=== PATIENT | female | born 2000 | race Two or more races ===

== ENCOUNTER 2024-10-11 14:33 | Emergency (ER) | payer MEDICAID, SELFPAY ==
[2024-10-11 14:46] VITALS: BP 125/89; PULSE 82; RESP 16; TEMP 36.7; O2SAT 99; BMI 26.4
--- NOTE | 2024-10-11 14:55 | EKG_ITS ---
[facility] Test Date: 2024-10-11 Pat Name: JUAN REYES Department: Room: - Gender: Female Milker Machine: : 2000 Requested By: Tristan Delgado Order Number: [id number] Reading MD: Tristan Delgado Measurements Intervals Jemison Rate: 68 P: 42 NJ: 149 QRS: 56 QRSD: 80 T: 48 QT: 366 QTc: 390 Interpretive Statements SINUS RHYTHM WITH SINUS ARRHYTHMIA No previous ECG available for comparison /store/S0/[id number].pdf
--- NOTE | 2024-10-11 14:55 | XR_ITS ---
Examination: CT brain head without contrast. 2-D sagittal coronal reconstructions Date and time of exam:October 11, 2024, 1509 hrs. Indications: Headache dizziness beginning one week ago CTDI: vol (mGy):44.9 DLP: (mGycm):790 Technique: Multiple CT axial sections of the brain have been obtained, 5 mm slice thickness. Contrast has not been administered. 2-D sagittal, coronal reconstructions have been obtained Low dose protocols were performed. One or more of the following dose reduction techniques were used; automated exposure control, adjustment of the mA and/or KV according to patient size, use of iterative reconstruction technique. Findings: No significant ventricular enlargement. Intra-axial or extra-axial hemorrhage density is not seen. No mass effect or midline shift Basal cisterns are not remarkable. Fourth ventricle is midline. Cranial vault intact. Impression: Negative for acute hemorrhage, mass effect or midline shift Advise clinical correlation and follow-up accordingly
--- NOTE | 2024-10-11 14:55 | PD.EDRME ---
Rapid Medical Screening Exam RME Arrival date/time: 10/11/24 14:33 This is a case of 24-year-old female who came into the emergency room due to dizziness and headache for 1 week with nausea vomiting worsening of the symptoms this patient decided to start consult here in the emergency ROOM Chief Complaint: Dizziness Time Seen by Provider: 10/11/24 14:54 Vital signs: Vital Signs Temperature 98.0 F 10/11/24 14:46 Pulse Rate 82 10/11/24 14:46 Respiratory Rate 16 10/11/24 14:46 Blood Pressure 125/89 H 10/11/24 14:46 Pulse Oximetry (%) 99 10/11/24 14:46 Oxygen Delivery Method Room Air 10/11/24 14:46
[2024-10-11 15:40] LABS: Collection Type, Urine Clean Catch
[2024-10-11 15:51] LABS: Basophils % (Auto) 1 % (0-2.5); Eosinophils # (Auto) 0.1 Thou/mm3 (0.0-0.5); Eosinophils % (Auto) 1 % (0-10); Hematocrit 37.1 % (36.0-46.0); Hemoglobin 13.3 g/dL (12.0-16.0); Immature Granulocytes % (Auto) 0 % (0-0); Immature Granulocytes Auto 0.02 Thou/mm3 (0.00-0.00); Lymphocytes # (Auto) 2.6 Thou/mm3 (1.0-4.8); Lymphocytes % (Auto) 32 % (10-50); Mean Corpuscular HGB Conc 35.8 g/dl (31.0-37.0); Mean Corpuscular Hemoglobin 31.8 pg (25.0-35.0); Mean Corpuscular Volume 89 fL (80-100); Monocytes # (Auto) 0.4 Thou/mm3 (0.0-0.8); Monocytes % (Auto) 5 % (0-12); Neutrophils % (Auto) 61 % (37-80); Nucleated Red Blood Cell % 0 /100 WBC (0); Platelet Count 222 Thou/mm3 (140-440); RDW Standard Deviation 39.4 fL (36.4-46.3); Red Blood Count 4.18 Miln/mm3 (4.00-5.20); White Blood Count 8.2 Thou/mm3 (3.6-11.0)
[2024-10-11 16:05] LABS: Alanine Aminotransferase 13 U/L (10-49); Albumin, Serum 4.4 gm/dL (3.5-5.0); Albumin/Globulin Ratio 2.1 (1.2-2.2); Alkaline Phosphatase 44 U/L (46-116); Anion Gap 6 (7-16); Aspartate Amino Transferase 13 U/L (0-34); BUN/Creatinine Ratio 7 Ratio (12-20); Bilirubin,Total 0.6 mg/dL (0.3-1.2); Blood Urea Nitrogen 5 mg/dL (9-23); Calcium 9.1 mg/dL (8.3-10.6); Calcium (Corrected) 9.1 mg/dL (8.5-10.1); Carbon Dioxide 25.9 mMol/L (20.0-31.0); Chloride 108 mMol/L (98-107); Creatinine (Component) 0.7 mg/dL (0.6-1.3); Estimated Creatinine Clearance 93.7 mL/min (>60); Globulin 2.1 gm/dL (2.3-3.5); Glucose 115 mg/dL (74-106); Osmolality,Calculated 277 (275-295); Potassium 3.7 mMol/L (3.4-5.1); Sodium 140 mMol/L (136-145); Total Protein 6.5 gm/dL (5.7-8.2); Troponin I < 0.002 ng/mL (0.0-0.045); eGFR > 60 See Note
[2024-10-11 16:06] LABS: Bacteria,Urine Rare; Bilirubin,Urine Negative (Negative); Blood,Urine Negative (Negative); Color,Urine Lt-Yellow (Lt Yel-Yel); Glucose, Urine Negative (Negative); Ketones,Urine Negative (Negative); Leukocyte Esterase,Urine Negative (Negative); Nitrite,Urine Negative (Negative); PH,Urine 7.5 (5.0-7.0); Protein,Urine Negative (Neg - Trace); RBC,Urine < 1 /hpf (0-3); Specific Gravity,Urine 1.018 (1.001-1.035); Squamous Epithelial Cell,Urine 8 /hpf (0-5); Urobilinogen,Urine Negative mg/dL (0.0-1.0); WBC,Urine < 1 /hpf (0-5)
[2024-10-11 16:08] LABS: HCG Qualitative,Urine Negative
[2024-10-11 16:12] LABS: Clarity,Urine Hazy (Clear/Hazy)
--- NOTE | 2024-10-11 20:10 | PC.NURSE ---
no answer for review @2009
--- NOTE | 2024-10-11 20:28 | PC.NURSE ---
no answer @2027 for review
--- NOTE | 2024-10-11 20:48 | PC.NURSE ---
Pt NA x3 @ 2047 chart to be eloped
== END 2024-10-11 20:49 | disposition left against medical advice (07) ==
PROVIDERS: Nurse Practitioner Family; Emergency Provider Emergency Medicine
DX: R51.9 Headache, unspecified (principal); R42 Dizziness and giddiness; R11.2 Nausea with vomiting, unspecified; Z53.29 Procedure and treatment not carried out because of patient's decision for other reasons
CPT/HCPCS: 36415; 70450; 80053; 81001; 81025; 84484; 85025; 93005; 99281

== ENCOUNTER 2024-11-27 01:03 | Emergency (ER) | payer MEDICAID, SELFPAY ==
[2024-11-27 01:04] VITALS: BMI 25.2
[2024-11-27 01:23] VITALS: BP 119/86; PULSE 70; RESP 18; TEMP 36.4; O2SAT 96
--- NOTE | 2024-11-27 01:31 | EDNOTE_ITS ---
ED Abdominal Pain RME/HPI General Chief Complaint: Abdominal Pain Stated complaint: RUQ ABD PAIN Time seen by provider: 11/27/24 01:28 Arrival date/time: 11/27/24 01:03 RME / HPI RME / HPI narrative: DR. DAVALOS MAIN ED EVALUATION: 24 y/o female presents with intermittent RUQ abdominal pain, nausea and vomiting x 1 week, but worse over the last 3 hours. LMP was last week. Denies history of gall stones. Person reports an allergy to sulfa drugs. No other concern or complaints expressed at this time. Related Data Previous Rx's ?Medication ?Instructions ?Recorded loperamide 2 mg capsule (Imodium 2 mg PO Q6H PRN loose stool #7 caps 02/21/24 A-D) dicyclomine 20 mg tablet 20 mg PO QID PRN abdominal p ain 11/27/24 #20 tabs Allergies Allergy/AdvReac Type Severity Reaction Status Date / Time Sulfa (Sulfonamide Allergy Unknown Verified 10/11/24 14:36 Antibiotics) Review of Systems Review of Systems Systems Reviewed: All systems reviewed, normal except as documented ED Exam Narrative Physical exam: Generally patient is alert and in no obvious distress, heart is regular rate and rhythm, lungs clear to auscultation, abdomen soft bowel sounds present nondistended right upper quadrant abdominal tenderness without rebound or Zimmerman sign. Course Quality Measures none Orders Category Date Time Status US gall bladder Stat Exams 11/27/24 01:32 Stop Req CBC Stat Lab 11/27/24 01:46 Completed CMP [Comprehensive Metabolic Panel] Stat Lab 11/27/24 01:46 Completed HCG,Qualitative Serum Stat Lab 11/27/24 01:46 Completed Lipase Stat Lab 11/27/24 01:46 Completed Morphine Inj Med 11/27/24 01:32 Discontinued 5 mg IM X1 ONE Vital Signs Vital signs: Vital Signs Temperature 97.5 F 11/27/24 01:23 Pulse Rate 70 11/27/24 01:23 Respiratory Rate 18 11/27/24 01:23 Blood Pressure 119/86 H 11/27/24 01:23 Pulse Oximetry (%) 96 11/27/24 01:23 Oxygen Delivery Method Room Air 11/27/24 01:23 Abdominal Pain MDM MDM Narrative MDM Narrative:: Scribe Attestation: Ruthie Quan am scribing for and in the presence of Dr. Davalos. Provider Notation: Although this document has been carefully reviewed, there may still be some phonetic and other typographical errors.? These errors are purely grammatical due to imperfections in the software program and should not be construed in any way to? compromise the substance of the patient's medical care during this visit. I interpreted all labs. There is no leukocytosis. No abnormal LFTs. Lipase is normal. Patient has no fever. Patient will be discharged on Bentyl to be taken as prescribed. Follow-up with her doctor. She was counseled on the need to avoid hot spicy greasy fatty foods. Follow-up with her doctor as needed for further treatment and evaluation. Patient data External records reviewed:: [facility] previous records (Reviewed prior ED records from 02/21/24. Patient was seen for Viral gastroenteritis.) Clinical information provided by:: patient Social determinants that could affect healthcare access:: none Patient has the following chronic illnesses:: None reported How is presenting disease/condition affected by chronic disease/condition?: no chronic disease Evaluation data The following diagnostics were reviewed and interpreted by me:: lab results and radiology exam(s) Lab and/or radiology exams considered but not ordered:: None Interpretation Summary: RADIOLOGY Gall Bladder US: Medications / Prescriptions Medications or Prescriptions considered but not ordered:: None Medication administrations:: Medication Administration History Discontinued Medications Morphine Sulfate (Morphine Sulf Inj 10 Mg/Ml Vial) 5 mg IM X1 ONE Stop: 11/27/24 01:33 See above Consultations Consultation(s) initiated? (list below): No Diagnosis Differential diagnosis abdominal pain: abdominal pain, calculus of kidney, constipation, gastroenteritis, pancreatitis and other (Cholecystitis, Cholelithiasis) Most likely diagnosis given after review of the tests above:: none Admission Indicated Admission indicated?: not indicated Admission Request Was there a request for admission?: No Disposition Plan Disposition Plan: Discharge Discharge Attestation Discharge Attestation: The patient and all family members were given an opportunity to ask questions and understood the discharge instructions. Discharge instructions specifically effects, indications for sooner follow up or return to the emergency department, and the expected course of current diagnosis. Patient condition: Stable Discharge Plan Plan Patient Disposition: HOME (Self Care) Prescriptions/Referrals Prescriptions/Med Rec: New dicyclomine 20 mg tablet 20 mg PO QID PRN (Reason: abdominal pain) Qty: 20 0RF No Action loperamide [Imodium A-D] 2 mg capsule 2 mg PO Q6H PRN (Reason: loose stool) Qty: 7 0RF Problem List Clinical Impression: Abdominal pain Patient/Caregiver Discharge Instructions Education Materials: Abdominal Pain Additional Instructions: Medication as prescribed. Avoid hot spicy greasy fatty foods. Follow-up with your doctor. Return to ER as needed or if condition worsens. Print Language: Japanese Stand Alone Forms: Herminia Award Info., Patient Portal Info Letter
[2024-11-27 01:57] LABS: Basophils # (Auto) 0.1 Thou/mm3 (0.0-0.2); Basophils % (Auto) 0 % (0-2.5); Eosinophils # (Auto) 0.2 Thou/mm3 (0.0-0.5); Eosinophils % (Auto) 1 % (0-10); Hematocrit 39.5 % (36.0-46.0); Hemoglobin 13.5 g/dL (12.0-16.0); Immature Granulocytes Auto 0.04 Thou/mm3 (0.00-0.00); Lymphocytes # (Auto) 3.4 Thou/mm3 (1.0-4.8); Lymphocytes % (Auto) 25 % (10-50); Mean Corpuscular HGB Conc 34.2 g/dl (31.0-37.0); Mean Corpuscular Hemoglobin 31.3 pg (25.0-35.0); Mean Corpuscular Volume 91 fL (80-100); Monocytes # (Auto) 0.7 Thou/mm3 (0.0-0.8); Monocytes % (Auto) 5 % (0-12); Neutrophils # (Auto) 9.2 Thou/mm3 (1.8-7.7); Neutrophils % (Auto) 68 % (37-80); Nucleated Red Blood Cell # 0.00 Thou/mm3 (0.00-0.00); Nucleated Red Blood Cell % 0 /100 WBC (0); Platelet Count 231 Thou/mm3 (140-440); RDW Standard Deviation 39.0 fL (36.4-46.3); Red Blood Count 4.32 Miln/mm3 (4.00-5.20); White Blood Count 13.7 Thou/mm3 (3.6-11.0)
[2024-11-27 02:14] LABS: Alanine Aminotransferase 9 U/L (10-49); Albumin, Serum 4.5 gm/dL (3.5-5.0); Albumin/Globulin Ratio 2.1 (1.2-2.2); Alkaline Phosphatase 51 U/L (46-116); Anion Gap 9 (7-16); Aspartate Amino Transferase 17 U/L (0-34); BUN/Creatinine Ratio 11 Ratio (12-20); Bilirubin,Total 0.4 mg/dL (0.3-1.2); Blood Urea Nitrogen 8 mg/dL (9-23); Calcium 9.7 mg/dL (8.3-10.6); Calcium (Corrected) 9.7 mg/dL (8.5-10.1); Carbon Dioxide 26.3 mMol/L (20.0-31.0); Chloride 105 mMol/L (98-107); Creatinine (Component) 0.7 mg/dL (0.6-1.3); Estimated Creatinine Clearance 91.7 mL/min (>60); Globulin 2.1 gm/dL (2.3-3.5); Glucose 87 mg/dL (74-106); Lipase 29 U/L (12-53); Osmolality,Calculated 276 (275-295); Potassium 3.6 mMol/L (3.4-5.1); Sodium 140 mMol/L (136-145); Total Protein 6.6 gm/dL (5.7-8.2); eGFR > 60 See Note
[2024-11-27 02:15] LABS: HCG,Qualitative Serum Negative
[2024-11-27] MEDS: MORPHINE SULF INJ 10 MG/ML VIAL 5 MG IM (02:28)
[2024-11-27] MEDS: DICYCLOMINE INJ 10 MG/ML 2ML AMP 20 MG IM (03:22)
[2024-11-27 03:29] VITALS: BP 120/86; PULSE 77; RESP 18; TEMP 36.6; O2SAT 95
== END 2024-11-27 03:33 | disposition home or self-care (01) ==
LOC: SERX 02:24
PROVIDERS: Emergency Provider Emergency Medicine; PCP Physician Assistant
DX: R10.11 Right upper quadrant pain (principal)
CPT/HCPCS: 36415; 80053; 83690; 84703; 85025; 96372; 99283; J0500; J2270

== ENCOUNTER 2024-11-30 05:05 | Day surgery (SDC) | payer MEDICAID, SELFPAY ==
[2024-11-30] VITALS (9 sets, daily range): BP systolic 108–151; BP diastolic 67–99; PULSE 68–105; RESP 14–20; TEMP 36.3–36.8; O2SAT 95–98; BMI 26.9
--- NOTE | 2024-11-30 05:27 | XR_ITS ---
Examination: Abdomen sonogram, Limited Date and time of exam: November 30, 2024 0539 hours INDICATIONS: Right upper abdominal pain nausea vomiting beginning 2 days ago. Technique: Real-time arellano scale transabdominal sonographic images of the upper abdomen obtained. Findings: Gallbladder sludge Negative for gallstones, no normal gallbladder wall Common bile duct 0.4 cm Pancreatic head 2.5 cm Liver 15.3 cm no focal liver lesions Normal hepatopedal portal venous flow Patent IVC IMPRESSION: Gallbladder sludge
--- NOTE | 2024-11-30 05:28 | PD.EDRME ---
Rapid Medical Screening Exam RME Arrival date/time: 11/30/24 05:05 This is a case of 24-year-old female who came into the emergency room due to right upper quadrant abdominal pain today with nausea vomiting worsening of the symptoms this patient decided to sought consult here in the emergency room Chief Complaint: Abdominal Pain Vital signs: Vital Signs Temperature 98.3 F 11/30/24 05:22 Pulse Rate 90 11/30/24 05:22 Respiratory Rate 18 11/30/24 05:22 Blood Pressure 115/75 11/30/24 05:22 Pulse Oximetry (%) 97 11/30/24 05:22 Oxygen Delivery Method Room Air 11/30/24 05:22
[2024-11-30] MEDS: ONDANSETRON ODT 4 MG TABRAP PO (05:35)
[2024-11-30] MEDS: MORPHINE SULF INJ 10 MG/ML VIAL 4 MG IM (05:36)
[2024-11-30 06:26] LABS: Collection Type, Urine Clean Catch
[2024-11-30] MEDS: HYDROcodone/APAP 5/325 TABLET 1 TAB PO (06:28)
[2024-11-30 06:34] LABS: Basophils # (Auto) 0.1 Thou/mm3 (0.0-0.2); Basophils % (Auto) 1 % (0-2.5); Eosinophils # (Auto) 0.1 Thou/mm3 (0.0-0.5); Eosinophils % (Auto) 1 % (0-10); Hematocrit 39.4 % (36.0-46.0); Hemoglobin 13.6 g/dL (12.0-16.0); Immature Granulocytes Auto 0.02 Thou/mm3 (0.00-0.00); Lymphocytes # (Auto) 2.7 Thou/mm3 (1.0-4.8); Lymphocytes % (Auto) 30 % (10-50); Mean Corpuscular HGB Conc 34.5 g/dl (31.0-37.0); Mean Corpuscular Hemoglobin 31.3 pg (25.0-35.0); Mean Corpuscular Volume 91 fL (80-100); Monocytes # (Auto) 0.5 Thou/mm3 (0.0-0.8); Monocytes % (Auto) 6 % (0-12); Neutrophils # (Auto) 5.6 Thou/mm3 (1.8-7.7); Neutrophils % (Auto) 62 % (37-80); Nucleated Red Blood Cell # 0.00 Thou/mm3 (0.00-0.00); Nucleated Red Blood Cell % 0 /100 WBC (0); Platelet Count 216 Thou/mm3 (140-440); RDW Standard Deviation 38.6 fL (36.4-46.3); Red Blood Count 4.34 Miln/mm3 (4.00-5.20); White Blood Count 9.1 Thou/mm3 (3.6-11.0)
[2024-11-30 06:37] LABS: Bacteria,Urine Rare; Bilirubin,Urine Negative (Negative); Blood,Urine Negative (Negative); Clarity,Urine Clear (Clear/Hazy); Color,Urine Colorless (Lt Yel-Yel); Glucose, Urine Negative (Negative); Ketones,Urine Negative (Negative); Leukocyte Esterase,Urine Negative (Negative); Nitrite,Urine Negative (Negative); PH,Urine 7.0 (5.0-7.0); Protein,Urine Negative (Neg - Trace); RBC,Urine < 1 /hpf (0-3); Specific Gravity,Urine 1.007 (1.001-1.035); Squamous Epithelial Cell,Urine 1 /hpf (0-5); Urobilinogen,Urine Negative mg/dL (0.0-1.0); WBC,Urine < 1 /hpf (0-5)
[2024-11-30 06:38] LABS: HCG Qualitative,Urine Negative
[2024-11-30] MEDS: MORPHINE SULF INJ 10 MG/ML VIAL 4 MG IVP (06:52)
[2024-11-30 06:58] LABS: Alanine Aminotransferase 26 U/L (10-49); Albumin, Serum 4.5 gm/dL (3.5-5.0); Albumin/Globulin Ratio 2.3 (1.2-2.2); Alkaline Phosphatase 48 U/L (46-116); Anion Gap 11 (7-16); Aspartate Amino Transferase 24 U/L (0-34); BUN/Creatinine Ratio 15 Ratio (12-20); Bilirubin,Total 0.5 mg/dL (0.3-1.2); Blood Urea Nitrogen 9 mg/dL (9-23); Calcium 9.8 mg/dL (8.3-10.6); Calcium (Corrected) 9.8 mg/dL (8.5-10.1); Carbon Dioxide 22.0 mMol/L (20.0-31.0); Chloride 108 mMol/L (98-107); Creatinine (Component) 0.6 mg/dL (0.6-1.3); Estimated Creatinine Clearance 110.4 mL/min (>60); Globulin 2.0 gm/dL (2.3-3.5); Glucose 104 mg/dL (74-106); Lipase 33 U/L (12-53); Osmolality,Calculated 279 (275-295); Potassium 3.9 mMol/L (3.4-5.1); Sodium 141 mMol/L (136-145); Total Protein 6.5 gm/dL (5.7-8.2); eGFR > 60 See Note
--- NOTE | 2024-11-30 08:57 | XR_ITS ---
Examination: CT abdomen and pelvis without contrast. Coronal 3-D reconstructions. Sagittal 2-D reconstructions. Date and time of exam:November 30, 2024 0947 hours INDICATIONS: Right upper abdominal pain nausea vomiting beginning 2 days ago CTDI: vol (mGy): 6.58 DLP: (mGycm): 325. Technique: Axial images of the abdomen have been obtained, 3 mm slice thickness Intravenous contrast material has not been administered. Low dose protocols were performed. One or more of the following dose reduction techniques were used; automated exposure control, adjustment of the mA and/or KV according to patient size, use of iterative reconstruction technique. Findings: No focal liver or splenic lesion Gallstones Gallbladder wall appears thickened No pancreatic or adrenal mass No renal or ureteral calculi Aorta normal size Normal appendix 24 mm left adnexal cyst Urinary bladder intact The osseous structures are intact IMPRESSION: On the current study findings are suspicious for acute calculus cholecystitis in spite of the gallbladder sonogram report today Recommend HIDA scan or MRCP follow-up
[2024-11-30] MEDS: ONDANSETRON INJ 2 MG/ML INJ 2 ML 4 MG IVP (10:05)
--- NOTE | 2024-11-30 12:03 | EDNOTE_ITS ---
<Statement entered by Zee Duggan MD - 11/30/24 15:50> As co-signing physician, I was present and available for consult prn. I concur with the plan and care as documented by the midlevel provider. ED Abdominal Pain RME/HPI General Chief Complaint: Abdominal Pain Stated complaint: RUQ ABD PAIN Time seen by provider: 11/30/24 05:30 Arrival date/time: 11/30/24 05:05 24-year-old female with no known medical history presents to the emergency room with a chief complaint of right upper quadrant abdominal pain nausea vomiting x 2 days Source: patient Mode of arrival: ambulatory Limitations: no limitations RME / HPI RME / HPI narrative: 11/30/24 05:05 This is a case of 24-year-old female who came into the emergency room due to right upper quadrant abdominal pain today with nausea vomiting worsening of the symptoms this patient decided to sought consult here in the emergency room Related Data Previous Rx's ?Medication ?Instructions ?Recorded loperamide 2 mg capsule (Imodium 2 mg PO Q6H PRN loose stool #7 caps 02/21/24 A-D) dicyclomine 20 mg tablet 20 mg PO QID PRN abdominal p ain 11/27/24 #20 tabs Allergies Allergy/AdvReac Type Severity Reaction Status Date / Time Sulfa (Sulfonamide Allergy Unknown Verified 11/30/24 05:10 Antibiotics) Review of Systems Review of Systems Systems Reviewed: All systems reviewed, normal except as documented Constitutional Constitutional: Reports system reviewed and no additional complaints, except as documented, Denies fatigue, Denies fever(s), Denies headache(s) and Denies weakness Eyes Eyes: Reports system reviewed and no additional complaints, except as documented, Denies blurry vision and Denies change in vision ENT Ears, Nose, Mouth, and Throat: Reports system reviewed and no additional complaints, except as documented, Denies otalgia, Denies headache(s), Denies nasal congestion, Denies throat swelling and Denies vertigo Cardiovascular Cardiovascular: Reports system reviewed and no additional complaints, except as documented, Denies chest pain, Denies dyspnea and Denies dyspnea on exertion Respiratory Respiratory: Reports system reviewed and no additional complaints, except as documented, Denies chest congestion, Denies cough, Denies dyspnea, Denies dyspnea on exertion and Denies wheezing Gastrointestinal Gastrointestinal: Reports system reviewed and no additional complaints, except as documented, Reports abdominal pain, Reports cramping, Reports nausea and Denies vomiting Genitourinary Genitourinary: Reports system reviewed and no additional complaints, except as documented Musculoskeletal Musculoskeletal: Reports system reviewed and no additional complaints, except as documented and Denies back pain Integumentary/Breasts Skin/Breast: Reports system reviewed and no additional complaints, except as documented and Denies wounds Neurologic Neurologic: Reports system reviewed and no additional complaints, except as documented, Denies confusion, Denies headache(s), Denies lack of coordination, Denies vertigo and Denies weakness Psychiatric Psychiatric: Reports system reviewed and no additional complaints, except as documented, Denies anxiety, Denies confusion, Denies depression, Denies paranoia, Denies suicidal ideation and Denies tactile hallucinations Endocrine Endocrine: Reports system reviewed and no additional complaints, except as documented and Denies fatigue Hematologic/Lymphatic Hematologic/Lymphatic: Reports system reviewed and no additional complaints, except as documented and Denies lymphadenopathy Allergic/Immunologic Allergic/Immunologic: Reports system reviewed and no additional complaints, except as documented, Denies throat swelling, Denies urticaria and Denies wheezing ED Exam General Limitations: Present no limitations General appearance: Present alert and in no apparent distress Head Head exam: Present atraumatic Eye Eye exam: Present normal appearance, PERRL and EOMI ENT ENT exam: Present normal exam, normal oropharynx and mucous membranes moist Neck Neck exam: Present normal inspection, full ROM and trachea midline Chest Chest inspection: Present normal inspection and symmetric chest wall rise Respiratory Respiratory exam: Present normal lung sounds bilaterally Cardiovascular Cardiovascular exam: Present regular rate, normal rhythm and normal heart sounds Abdominal Exam Abdominal exam: Present soft, tenderness, normal bowel sounds and Zimmerman's sign Abdominal tenderness: Present RUQ and moderate Extremities Exam Extremities exam: Present normal inspection and full ROM Back Exam Back exam: Present normal inspection and full ROM Neurological Exam Neurological exam: Present alert, oriented X3 and CN II-XII intact Psychiatric Psychiatric exam: Present normal affect and normal mood Skin Skin exam: Present warm, dry, intact and normal color Course Quality Measures none Orders Category Date Time Status Place in Surgical Day Care Routine Admission 11/30/24 11:36 Active Activity as Tolerated Routine Care 11/30/24 11:36 Ordered COVID-19 Screening Questionnaire NOW Care 11/30/24 10:41 Active Decision to Admit X1 Care 11/30/24 10:41 Active Insert IV STAT Care 11/30/24 06:43 Active Obtain Written Consent For: NOW Care 11/30/24 11:[address] abdomen pelvis wo con Stat Exams 11/30/24 08:57 Completed US gall bladder Stat Exams 11/30/24 05:27 Completed CBC Stat Lab 11/30/24 06:19 Completed Comprehensive Metabolic Panel Stat Lab 11/30/24 06:19 Completed HCG Qualitative,Urine Stat Lab 11/30/24 06:15 Completed Lipase Stat Lab 11/30/24 06:19 Completed Urinalysis Stat Lab 11/30/24 06:15 Completed Acetaminophen Tab [Tylenol Tab] Med 11/30/24 11:36 Active 650 mg PO Q6H PRN HYDROcodone*/APAP 5/325 [Sherman 5/325] Med 11/30/24 06:22 Discontinued 1 tab PO X1 ONE Ketorolac Inj [Toradol Inj] Med 11/30/24 11:36 Active 15 mg IVP Q6H PRN Morphine Inj Med 11/30/24 05:27 Discontinued 4 mg IM X1 ONE Morphine Inj Med 11/30/24 11:36 Active 4 mg IVP Q4H PRN Morphine Inj Med 11/30/24 06:43 Discontinued 4 mg IVP X1 ONE Ondansetron Inj [Zofran Inj] Med 11/30/24 11:36 Active 4 mg IVP Q6H PRN Ondansetron Inj [Zofran Inj] Med 11/30/24 09:25 Discontinued 4 mg IVP X1 ONE Ondansetron Odt [Zofran Odt] Med 11/30/24 05:27 Discontinued 4 mg PO X1 ONE Sodium Chloride 0.9% 1000 ml [Ns] 1,000 ml Med 11/30/24 11:45 Active IV 125 mls/hr Code Status Routine Oth 11/30/24 11:37 Ordered Vital Signs Vital signs: Vital Signs Temperature 98.3 F 11/30/24 05:22 Pulse Rate 90 11/30/24 05:22 Respiratory Rate 18 11/30/24 05:22 Blood Pressure 115/75 11/30/24 05:22 Pulse Oximetry (%) 97 11/30/24 05:22 Oxygen Delivery Method Room Air 11/30/24 05:22 Abdominal Pain MDM MDM Narrative MDM Narrative:: 24-year-old female with no known medical history presents to the emergency room with a chief complaint of right upper quadrant abdominal pain nausea vomiting x 2 days Patient is hemodynamically stable and in no apparent distress Physical examination shows tenderness and pain to the right upper quadrant. The patient has a positive Zimmerman sign with palpation. Patient is actively vomiting. An ultrasound was completed and was negative for any acute findings. A CT of the abdomen and pelvis was then ordered and showed acute calculus cholecystitis. Dr. Quan the general surgeon on-call was consulted and she will admit the patient and take her for surgery today at 2:30 PM. Patient data External records reviewed:: [facility] previous records Clinical information provided by:: patient Social determinants that could affect healthcare access:: none Patient has the following chronic illnesses:: No chronic illness How is presenting disease/condition affected by chronic disease/condition?: no chronic disease Evaluation data The following diagnostics were reviewed and interpreted by me:: lab results and radiology exam(s) Lab and/or radiology exams considered but not ordered:: Labs and radiology exams considered and ordered Interpretation Summary: Abdomen and pelvis CT-Findings: No focal liver or splenic lesion Gallstones Gallbladder wall appears thickened No pancreatic or adrenal mass No renal or ureteral calculi Aorta normal size Normal appendix 24 mm left adnexal cyst Urinary bladder intact The osseous structures are intact IMPRESSION: On the current study findings are suspicious for acute calculus cholecystitis in spite of the gallbladder sonogram report today Recommend HIDA scan or MRCP follow-up Medications / Prescriptions Medications or Prescriptions considered but not ordered:: Medication given Medication administrations:: Medication Administration History Acetaminophen (Acetaminophen 325 Mg Tablet) 650 mg PO Q6H PRN PRN Reason: PAIN SCALE 1-3 (mild Stop: 12/30/24 11:35 Sodium Chloride (Ns) 1,000 mls @ 125 mls/hr IV .Q8H IRINEO Stop: 12/30/24 11:44 Ketorolac Tromethamine (Ketorolac Inj 30 Mg/Ml Vial) 15 mg IVP Q6H PRN PRN Reason: PAIN SCALE 4-6 (Moderate Stop: 12/05/24 11:35 Morphine Sulfate (Morphine Sulf Inj 10 Mg/Ml Vial) 4 mg IVP Q4H PRN PRN Reason: PAIN SCALE 7-10 (Severe Stop: 12/04/24 11:35 Ondansetron HCl (Ondansetron Inj 2 Mg/Ml Inj 2 Ml) 4 mg IVP Q6H PRN; Protocol PRN Reason: NAUSEA OR VOMITING Stop: 12/30/24 11:44 Discontinued Medications Hydrocodone Bitart/Acetaminophen (Hydrocodone/Apap 5/325 Tablet) 1 tab PO X1 ONE Stop: 11/30/24 06:23 Last Admin: 11/30/24 06:28 Dose: 1 tab Documented By: BD Morphine Sulfate (Morphine Sulf Inj 10 Mg/Ml Vial) 4 mg IM X1 ONE Stop: 11/30/24 05:28 Last Admin: 11/30/24 05:36 Dose: 4 mg Documented By: BD Morphine Sulfate (Morphine Sulf Inj 10 Mg/Ml Vial) 4 mg IVP X1 ONE Stop: 11/30/24 06:44 Last Admin: 11/30/24 06:52 Dose: 4 mg Documented By: BD Ondansetron HCl (Ondansetron Odt 4 Mg Tabrap) 4 mg PO X1 ONE; Protocol Stop: 11/30/24 05:28 Last Admin: 11/30/24 05:35 Dose: 4 mg Documented By: BD Ondansetron HCl (Ondansetron Inj 2 Mg/Ml Inj 2 Ml) 4 mg IVP X1 ONE; Protocol Stop: 11/30/24 09:26 Last Admin: 11/30/24 10:05 Dose: 4 mg Documented By: VG Medication given Consultations Consultation(s) initiated? (list below): Yes Consultation #1 (Physician, Specialty, Details): Dr. Quan Time: 10:00 Diagnosis Differential diagnosis abdominal pain: abdominal pain, gastroenteritis, pancreatitis and other (Cholelithiasis/cholecystitis) Most likely diagnosis given after review of the tests above:: Acute calculus cholecystitis Admission Indicated Admission indicated?: indicated Admission Request Was there a request for admission?: Yes Admission Attestation Admission request attestation: Discussed case with [Dr. Quan] from Hospitalist service regarding admission. Discussed patients ED course, exam findings, labs, and radiology results. The Hospitalist [agrees,declines] to accept the patient for admission. Disposition Plan Disposition Plan: Admit Discharge Plan Plan Patient Disposition: Admit Acute Care w/in Hospital Discharge Disposition comment: Stable Problem List Clinical Impression: Acute calculous cholecystitis
[2024-11-30] MEDS: SODIUM CHLORIDE 0.9% 1000 ML 1,000 ML 125 ML IV (12:23)
--- NOTE | 2024-11-30 13:00 | PC.NURSE ---
report given to Ritu on OR floor
--- NOTE | 2024-11-30 14:00 | PC.NURSE ---
attempted to call report. nurse will call back when ready
--- NOTE | 2024-11-30 14:12 | PC.NURSE ---
report called to mandish on med/surg floor. pt to go to room 350
--- NOTE | 2024-11-30 14:36 | ESHP_ITS ---
HPI HPI 24F presenting with 1 week history of right upper quadrant pain and nausea. Patient reports pain began a week ago, she presented to ER 11/27 and was advised to follow-up with her PCP however pain persisted and even worsened yesterday, she waited 6 hours and then presented to ER this morning. Patient reports pain is 10 out of 10 in severity, in the right upper quadrant associated with vomiting but no fever or diarrhea. She has no history of similar pain. She has received 2 doses of morphine 4 mg and yet feels the pain has persist. Ultrasound showed cholelithiasis without clear evidence of cholecystitis however CT does indicate cholecystitis and clinically patient does have signs consistent with cholecystitis PMH: None PSHx: None Meds: None Allergies: Sulfa (anaphylaxis) Social hx: Nonsmoker Review of Systems Review of Systems ROS Unobtainable: All systems reviewed & no additional complaints except as documented Constitutional Constitutional: Denies headache(s) and Denies weakness ENT Ears, Nose, Mouth, and Throat: Denies headache(s) and Denies vertigo Neurologic Neurologic: Reports system reviewed and no additional complaints, except as documented, Denies confusion, Denies headache(s), Denies lack of coordination, Denies vertigo and Denies weakness Psychiatric Psychiatric: Denies confusion Meds Home Medications and Allergies Allergies Allergy/AdvReac Type Severity Reaction Status Date / Time Sulfa (Sulfonamide Allergy Unknown Verified 11/30/24 05:10 Antibiotics) Exam Vital Signs Temp Pulse Resp BP Pulse Ox O2 Del Method 98.2 F 86 17 110/76 98 Room Air 11/30/24 11:52 11/30/24 11:52 11/30/24 11:52 11/30/24 11:52 11/30/24 11:52 11/30/24 11:52 Constitutional Constitutional: no acute distress Routine Respiratory Exam Respiratory: Present no resp distress Routine Abdominal Exam Abdominal: Present soft and tenderness (Severe tenderness right upper quadrant, did not attempt Zimmerman sign); Absent distended, rebound or guarding Results Results: Laboratory Laboratory results: results reviewed Results: Imaging CT scan - abdomen: report reviewed US - abdomen: report reviewed Assessment & Plan Plan 24F presenting with signs and symptoms of early acute cholecystitis. I explained benefits/risks of surgery including need for conversion to open, bleed ing, infection, injury to nearby structures requiring further procedures including biliary reconstruction which would require transfer to a tertiary hospital. I also discussed the possibility of postoperative hernia and diarrhea. All questions were answered and patient is agreeable to proceeding Quality Measures Quality Measures none
--- NOTE | 2024-11-30 16:19 | PD.SUROPNT ---
Date of Procedure 11/30/24 Pre Op Diagnosis Acute cholecystitis Post Op Diagnosis Same Procedure Laparoscopic cholecystectomy Findings Intrahepatic gallbladder with large stone Procedure Description After discussion of risks and benefits, patient was brought to the operating room, SCDs were placed and general anesthesia was induced. She was prepped and draped in the usual sterile fashion and received preoperative antibiotics. After timeout a supraumbilical incision was made with #11 blade and the skin was elevated with towel clamps. A Veress needle was placed through the incision and proper positioning was confirmed with a drop test at which point the abdomen was insufflated to 15 mmHg. At that point the Veress needle was exchanged for a 5 mm camera using a Visiport technique. There were no signs of injury from the point of entry. 3 additional ports were placed under direct vision, one 12 mm at the epigastrium, one 5 mm right subcostal and one 5 mm right anterior axillary line. Patient was placed in reverse Trendelenburg. The fundus of the gallbladder was grasped retracted cephalad and the infundibulum was grasped retracted laterally. The critical view of safety was achieved with blunt dissection and the cystic duct and cystic artery were clipped and transected it in the usual fashion. The gallbladder was removed from the gallbladder bed using electrocautery. Of note there was an accessory artery that was posterior to the cystic artery which could not be avoided and so I clipped and transected in the usual fashion. The gallbladder bed was irrigated and hemostasis was achieved with electrocautery and reinforced with Surgicel powder. The specimen was removed in an Endo Catch bag via the epigastric port and the epigastric fascia was closed with a 0 Vicryl suture using a Silvino-Sebastian. Pneumoperitoneum was released and ports were removed under direct vision. Incisions were irrigated and infiltrated with half percent Marcaine for a total of 24 cc. Incisions were closed with 4 Monocryl and reinforced with Dermabond. Patient was extubated and brought to PACU in stable condition Pathology / specimen Other (Gallbladder) Estimated Blood Loss 50 Surgeon Venecia Worthington MD Surgical Staff Operation Date: 11/30/24 15:15 Case Staff Anesthesiologist: Rodríguez Parada RNfront office help: Frida Marina
--- NOTE | 2024-11-30 16:22 | PD.SURDS ---
Planned Discharge Date 11/30/24 DS: Providers Provider Primary care physician: Deborah Gooden PA-C Attending Provider on Admission: Venecia Worthington MD Attending Provider on DC: Venecia Worthington MD Discharging Provider: Venecia Worthington MD Diagnosis Discharge Diagnosis (1) Acute calculous cholecystitis: Status: Acute Problem List Completed Was Problem List Reviewed/Reconciled?: Yes Exam Vital Signs Temp Pulse Resp BP Pulse Ox O2 Del Method 98.2 F 86 17 110/76 98 Room Air 11/30/24 11:52 11/30/24 11:52 11/30/24 11:52 11/30/24 11:52 11/30/24 11:52 11/30/24 11:52 Discharge Plan Plan Patient Disposition: HOME (Self Care) Prescriptions/Referrals Prescriptions/Med Rec: New oxycodone-acetaminophen [Percocet] 5-325 mg tablet 1 tab PO Q4HR MDD 6 tabs PRN (Reason: pain) Qty: 10 0RF Rx Instructions: Take 1 tablet as needed every 4-6 hours for moderate to severe pain No Action loperamide [Imodium A-D] 2 mg capsule 2 mg PO Q6H PRN (Reason: loose stool) Qty: 7 0RF dicyclomine 20 mg tablet 20 mg PO QID PRN (Reason: abdominal pain) Qty: 20 0RF Referrals: Deborah Gooden PA-C [Primary Care Provider] - In 1 week Venecia Worthington MD [Physician] - (You will receive a phone call to confirm a follow-up appointment with me in 2 weeks) Patient/Caregiver Discharge Instructions Other Discharge Activity Instructions:: Avoid lifting objects greater than 10 pounds for 6 weeks You may resume showering in 2 days, on 12/02 It is okay to get incisions wet in the shower, pat them dry after Avoid bathing or swimming for 2 weeks During the surgery we fill your abdomen with air in order to see the structures. Some of this air may linger and cause pain that is referred to your shoulder as well as pain with deep breaths. This will get better with time. Being out of bed and walking will help the air to absorb faster If you develop worsening pain, nausea/vomiting, fever or jaundice please seek care in ER You may take ibuprofen as needed in between doses of Percocet or instead of Percocet for mild to moderate pain Percocet can cause constipation, please take care to drink lots of water and take Colace or MiraLAX as needed for constipation Education Materials: Cholecystectomy Laparoscopic Dc Print Language: Portuguese Stand Alone Forms: Herminia Award Info., Patient Portal Info Letter Results Results: Laboratory Laboratory results: results reviewed Results: Imaging CT scan - abdomen: report reviewed US - abdomen: report reviewed PROCEDURES: Procedure Date 11/30/24 Procedures Laparoscopic cholecystectomy
--- NOTE | 2024-11-30 16:50 | SUR.PHASEI ---
1634: pt arrived to PACU via gurney drowsy but arouses to voice, breathing unlabored, dressing to abdomen clean, dry, and intact, report from Ritu BLAND and Dr Parada 1650: pt tolerating ice chips without difficulty swallowing or n/v
[2024-11-30] MEDS: fentaNYL CIT INJ 50 mCg/ML AMP 2ML IVP (16:58)
--- NOTE | 2024-11-30 17:35 | SUR.PHASEII ---
pt up to bathroom to urinate. significant other at bedside.
[2024-11-30] MEDS: METOCLOPRAMIDE INJ 5 MG/ML VIAL 2 ML 10 MG IVP (17:42)
--- NOTE | 2024-11-30 17:55 | SUR.PHASEII ---
pt awake, alert, able to follow commands, breathing unlabored, dressing to abdomen clean, dry, and intact, pt able to ambulate to wheelchair with steady gait, pt able to dress self, discharge instructions given with significant other present, all questions answered, pt discharged via wheelchair with all beloingings and copies of discharge paperwork.
== END 2024-11-30 17:55 | disposition home or self-care (01) ==
LOC: SERX 12:13 → S2EX 12:13
PROVIDERS: Nurse Practitioner Family; Emergency Provider Emergency Medicine; PCP Physician Assistant; Referring Provider Surgery; Visit Provider Surgery
PROC: 0FT44ZZ Resection of Gallbladder, Percutaneous Endoscopic Approach (ICD-10-PCS; CPT 47562; principal; 2024-11-30 15:00)
DX: K80.12 Calculus of gallbladder with acute and chronic cholecystitis without obstruction (principal)
CPT/HCPCS: 47562; 36415; 74176; 76705; 80053; 81001; 81025; 83690; 85025; 99283; A4217; A4649; J0131; J0694; J1100; J2270; J2405; J2704; J2710; J2765; J3010; J3490; J7030; Q0162; A9270; J1596

== ENCOUNTER 2024-12-17 11:18 | Outpatient (AMB) | payer MEDICAID, SELFPAY ==
--- NOTE | 2024-12-17 11:52 | GSCOFFNT_ITS ---
Vital Signs - [facility] 12/17/24 11:54 Height 1.47 m Height Method Stated Weight 56.387 kg Weight Measurement Method Standing Scale BMI 26.1 BP 109/74 Blood Pressure Source Automatic Cuff Blood Pressure Location Right Upper Arm Position Sitting Respiration 18 Pulse 68 Pulse Source Monitor Temp 98.3 F Temp Source Temporal Artery Scan Pulse Oximetry (%) 99 Oxygen Delivery Method Room Air Med/Allergies Allergies & Medications Allergies Sulfa (Sulfonamide Antibiotics) Allergy (Unknown, Verified 12/17/24 11:58) Medication Reconciliation loperamide 2 mg capsule (Imodium A-D) 2 mg PO Q6H PRN loose stool #7 caps 02/21/24 [Rx Confirmed 12/17/24] dicyclomine 20 mg tablet 20 mg PO QID PRN abdominal pain #20 tabs 11/27/24 [Rx Confirmed 12/17/24] oxycodone-acetaminophen 5 mg-325 mg tablet (Percocet) 1 tab PO Q4HR PRN pain #10 tabs 11/30/24 [Rx Confirmed 12/17/24] MA Intake Visit Data Collection New Patient or Established: Established Patient (seen at [facility] within 3 years) Seen by Clinical Staff ONLY (RN/MA): No Reason for Visit:: POST OP LAP CHOLECYSTECTOMY Pain Present Currently: Yes Pain Location: Abdomen Pain scale:: 1 Pain Scale Used: Kimbrough-Arana/Numerical Package Dye Stand Loader Required: No PCP or OBGYN visit in last 3 months: Yes Hx Now: No Do You Feel Safe at Home: Yes Authorities Contacted: N/A Smoking Status Smoking Status: Never smoker Immunization / Flu Flu Vaccine in the Last 12 Months: No Flu Vaccine Exclusion Criteria: Already Received Past Medical History Past Medical History NEUROLOGIC: Negative Seizures CARDIAC: Negative Congestive Heart Failure RESPIRATORY: Negative Chronic Obstructive Pulmonary Disease (COPD) GENITOURINARY: Negative Renal Disease ENDOCRINE: Negative Diabetes Mellitus Type 1 or Diabetes Mellitus Type 2 OTHER HISTORY: Negative Blood Transfusions or Anesthesia Reactions Social History SMOKING STATUS: Smoking status: Never smoker Travel Risk Travel Hx Recent Travel: No HPI HPI Narrative 24F who presented with acute cholecystitis s/p lap pedrito 11/30 here for planned follow up. Pt reports feeling well with pain controlled, no nausea, no fever, and no diarrhea ROS Review of Systems Systems Reviewed: All systems reviewed, normal except as documented Objective/Exam General General Appearance: alert, cooperative and well groomed Resp Respiratory exam: Absent respiratory distress Abdominal Abdominal exam: Present soft and incision (c/d/i, no erythema, no fluctuance or tenderness); Absent distention or tenderness Results Pathology of gallbladder reviewed Assessment & Plan Diagnosis / Problem List (1) Acute calculous cholecystitis: Status: Acute Assessment & Plan: 24F who presented with acute cholecystitis s/p lap pedrito 11/30 here for planned follow up, recovering well overall Plan: F/u as needed Office Procedures GNS Level of Care Nursing/Assessment Patient Status: Established Patient Nursing Assessment/Reassesment: Medication Reconciliation, Update PMH in EMR and Vital Signs Coordination of Care: Complex Care and Chronic Disease 1-5, Education Complex Pt/Fam, Consent,records obtained, informed consent, Results/Orders obtained and Staff clarify orders Established Patient Charge Established Patient Point Assignment: 95 Established Patient Point Charge: EP Level 3 (80-115) Patient Portal Questionaires Social History Tobacco History Smoking Status: Never smoker Domestic Abuse History Do You Feel Safe at Home: Yes Review of Systems Report any current symptoms Only answer those that you have currently: Past Medical History Past Medical History Have you ever been diagnosed with any of the following: Neurological Problems Seizures: No Cardiology Problems Congestive Heart Failure: No Respiratory Problems Chronic Obstructive Pulmonary Disease (COPD): No Genital/Urinary Problems Renal Disease: No Endocrine Problems Diabetes Mellitus Type 1: No Diabetes Mellitus Type 2: No Other Problems Blood Transfusions: No Anesthesia Reactions: No
[2024-12-17 11:54] VITALS: BP 109/74; PULSE 68; RESP 18; TEMP 36.8; O2SAT 99; BMI 26.1
== END 2024-12-17 12:03 | disposition home or self-care (01) ==
LOC: HODSRG 11:18
PROVIDERS: PCP Physician Assistant; Referring Provider Physician Assistant; Supervising Provider Surgery; Visit Provider Surgery
DX: Z48.815 Encounter for surgical aftercare following surgery on the digestive system (principal)
CPT/HCPCS: 99213; G0463